=== PATIENT | male | born 1990 | race African-American/Black ===

== ENCOUNTER 2018-08-28 18:33 | Emergency (ER) | payer BC, OTHER ==
[2018-08-28 18:44] VITALS: TEMP 98.5; BMI 31.3
[2018-08-28] MEDS ORDERED: LIDOCAINE 5% TOPICAL PATCH TP ONE (19:46)
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
[2018-08-28 20:12] VITALS: BP 143/91; PULSE 89
[2018-08-28] MEDS ORDERED: KETOROLAC TROMETHAMINE 60 MG/2 ML VIAL IM ONE (21:12)
[2018-08-28] MEDS ORDERED: KETOROLAC TROMETHAMINE 60 MG/2 ML VIAL ONE (21:22)
[2018-08-28] MEDS ORDERED: CYCLOBENZAPRINE HCL 10 MG TABLET (FP) PO ONE (21:31)
[2018-08-28] MEDS ORDERED: CYCLOBENZAPRINE HCL 10 MG TABLET (FP) ONE ×2 (21:32→21:37)
[2018-08-28] MEDS ORDERED: LIDOCAINE PATCH REMOVAL MC SCH (22:00)
== END 2018-08-28 21:39 | disposition home or self-care (01) ==
LOC: JERFT 18:33
PROC: 3E0233Z Introduction of Anti-inflammatory into Muscle, Percutaneous Approach (ICD-10-PCS; principal; 2018-08-28)
DX: S13.4XXA Sprain of ligaments of cervical spine, initial encounter (principal); V49.49XA Driver injured in collision with other motor vehicles in traffic accident, initial encounter; Y92.488 Other paved roadways as the place of occurrence of the external cause; Y93.89 Activity, other specified; Y99.8 Other external cause status
CPT/HCPCS: 72125-TC; 99282-25